=== PATIENT | female | born 1965 | race Caucasian/White ===

== ENCOUNTER 2021-06-29 18:22 | Emergency (ER) | payer OTHER ==
[~2021-06-29] VITALS: Ht 165.1 cm; Wt 72.7 kg
[2021-06-29 18:36] VITALS: BP 151/80
--- NOTE | 2021-06-29 19:07 | PHYS DOC ---
Past History Additional Past Medical Histor: chronic back pain, DDD, sciatica (ANN CASTELLANOS APRN) Past Surgical History: (ANN CASTELLANOS APRN) Alcohol Use: None (ANN CASTELLANOS APRN) General Adult EDM: Chief Complaint: FOOT INJURY PAIN HPI: HPI: Patient is a 56-year-old female who presents to the emergency department today for left great toe and foot pain that occurred after she dropped a horse salt block on it today. She reports that she has been able to bear weight and ambulate. She describes it as a throbbing pain. She rates it 10 out of 10. Sh e reports ecchymosis and swelling to her great toe. She denies any decreased range of motion of her foot, decreased sensation. (ANN CASTELLANOS APRN) Review of Systems: Review of Systems: Musculoskeletal: See HPI Integument: See HPI Neurologic: See HPI (ANN CASTELLANOS APRN) Physical Exam: PE: Constitutional: Well developed, well nourished, no acute distress, non-toxic appearance. [] HENT: Normocephalic, atraumatic, bilateral external ears normal, oropharynx moist, no oral exudates, nose normal. [] Eyes: PERRL, EOMI, conjunctiva normal, no discharge. [] Neck: Normal range of motion, normal range of motion Cardiovascular: Normal peripheral perfusion Lungs & Thorax: Normal work of breathing, no tachypnea Abdomen: Soft and flat Skin: Warm, dry, no erythema, no rash. [] Back: Normal range of motion Extremities: No tenderness, no cyanosis, no clubbing, ROM intact, no edema. Left foot: Swelling and ecchymosis noted to plantar aspect of left great toe, decreased flexion of left great toe due to pain, neuro intact, no obvious deformity, no open wounds Neurologic: Alert and oriented X 3, normal motor function, normal sensory funct ion, no focal deficits noted. [] Psychologic: Affect normal, judgement normal, mood normal. [] (ANN CASTELLANOS APRN) Current Patient Data: Vital Signs: Vital Signs Date Time Temp Pulse Resp B/P (MAP) Pulse Ox O2 Delivery O2 Flow Rate FiO2 06/29/21 18:36 98.3 96 17 151/80 (103) 97 Room Air (ANN CASTELLANOS MEDIA EXECUTIVE) EKG: EKG: [] (ANN CASTELLANOS APRN) Radiology/Procedures: Radiology/Procedures: []PROCEDURE: FOOT LEFT 3V Exam: Left foot 3 views INDICATION: Injury to great toe TECHNIQUE: Frontal, lateral oblique views of the right foot Comparisons: None FINDINGS: Bone mineralization is normal. No acute or healed fractures. Soft tissues are unremarkable. Joint spaces are well-maintained. IMPRESSION: No acute osseous abnormality. Electronically signed by: Ann Hoang MD (06/29/2021 7:42 PM) [facility] DICTATED AND SIGNED BY: ANN HOANG MD DATE: 06/29/211941 CC: ANN CASTELLANOS APRN; PCP,NO ~MTH0 0 (ANN CASTELLANOS APRN) Heart Score: C/O Chest Pain: N/A Risk Factors: Risk Factors: DM, Current or recent (<one month) smoker, HTN, HLP, family history of CAD, obesity. Risk Scores: Score 0 - 3: 2.5% MACE over next 6 weeks - Discharge Home Score 4 - 6: 20.3% MACE over next 6 weeks - Admit for Clinical Observation Score 7 - 10: 72.7% MACE over next 6 weeks - Early Invasive Strategies (ANN CASTELLANOS APRN) Course & Med Decision Making: Course & Med Decision Making Pertinent Labs and Imaging studies reviewed. (See chart for details) [] Patient presents to the emergency department for left foot and great toe pain assault yet dropped on yesterday. X-ray was performed which showed no acute findings as read by ER physician and this [employer]GSHEAD OPENER. Patient is neurovascularly intact. Nail bed is intact. Toes ezra taped, educated on ice, elevation and tylenol and ibuprofen use. Patient advised to follow-up with her primary care provider in a week for repeat x-ray. I discussed with patient all findings and diagnostic testing as well as the need to follow-up with PCP for further evaluation and treatment or return to the ER if any new or worsening symptoms. Strict return precautions were also discussed at length. Patient voiced understanding and agreement with the plan. Patient is hemodynamically stable at the time of disposition. (ANN CASTELLANOS APRN) Course & Med Decision Making Did not see or evaluate patient. Did not discuss patient with HOGSHEAD [employer]ENER. Agree with HOGS[employer] OPENER's work-up and disposition per note (ANGUS ARIZA MD) Estrella Disclaimer: Dragstacy Disclaimer: This electronic medical record was generated, in whole or in part, using a voice recognition dictation system. (ANN CASTELLANOS APRN) Departure Departure: Impression: Primary Impression: Toe contusion Qualified Codes: S90.112A - Contusion of left great toe without damage to nail, initial encounter Disposition: HOME / SELF CARE / HOMELESS Condition: GOOD Referrals: PCP,NO (PCP) Patient Instructions: Ezra Taping of Toes, Crush Injury, Fingers or Toes, Ea sy-to-Read Additional Instructions: You were seen in the emergency department today for foot pain and toe pain after a cell block fell on it. An x-ray was performed that showed no acute findings. Your toe was taped to the adjacent toe for support. For your pain you may take Tylenol and ibuprofen. For the swelling please apply ice and use elevation. Follow-up with your primary care provider on Friday regarding your ER visit. If you continue to have pain or your pain worsens you would benefit from a repeat x-ray in a week. Please return to the emergency department if you develop severe pain, inability to bear weight or ambulate, decreased range of motion or decreased sensation. ANN CASTELLANOS APRN Jun 29, 2021 19:07 ANGUS ARIZA MD Jun 29, 2021 20:24
--- NOTE | 2021-06-29 19:45 | RAD ---
Exam: Left foot 3 views INDICATION: Injury to great toe TECHNIQUE: Frontal, lateral oblique views of the right foot Comparisons: None FINDINGS: Bone mineralization is normal. No acute or healed fractures. Soft tissues are unremarkable. Joint spa arti are well-maintained. IMPRESSION: No acute osseous abnormality. Electronically signed by: Ann Rosales MD (06/29/2021 7:42 PM) [facility]
[2021-06-29] MEDS ORDERED: HYDROcodone/APAP 5/325MG 1 TAB TABLET ONE (19:53)
[2021-06-29] MEDS ORDERED: HYDROcodone/APAP 5/325MG 1 TAB TABLET PO ONE (20:00)
== END 2021-06-29 20:03 | disposition home or self-care (01) ==
LOC: ER 18:22
DX: S90.112A Contusion of left great toe without damage to nail, initial encounter (principal); V80.010A Animal-rider injured by fall from or being thrown from horse in noncollision accident, initial encounter; Y93.89 Activity, other specified; Y92.89 Other specified places as the place of occurrence of the external cause; Y99.8 Other external cause status
CPT/HCPCS: 73630; 99283-25